=== PATIENT | male | born 1965 | race Caucasian/White ===

== ENCOUNTER 2016-05-10 12:36 | Day surgery (SDC) | payer OTHER ==
[~2016-05-10] VITALS: Ht 177.8 cm; Wt 96.0 kg
[2016-05-10] VITALS (14 sets, daily range): BP systolic 92–114; BP diastolic 57–64; PULSE 75–78; RESP 9–18; O2SAT 93–99
[~2016-05-10 12:36] MED LIST: ALBU18HF INH; ALBU2.5V4 INHALATION; AMIT100T2 PO; AMLO10TA3 PO; ATEN100T PO; CARI350T PO; CeFAZolin 2 Gm/50 mL D5W IV Premix IV ONE; LIDO700A6 TP; LISI40TA PO; LORA10CA PO; MONT10TA23 PO; NPR500T PO; OMEP20TA86 PO; OXYC-466 PO; TRAM50TA2 PO; VIAGRA PO
[2016-05-10] MEDS ORDERED: Propofol 10,000 mCg/mL 20 mL Inj ONE (12:37)
[2016-05-10] MEDS ORDERED: Phenylephrine/NS 100 mCg/mL 10 mL Syringe IVPUSH ONE (12:37)
[2016-05-10] MEDS ORDERED: Lidocaine PF 1% 30 mL Inj ONE (12:37)
[2016-05-10] MEDS ORDERED: Vasopressin 20 Unit/mL Inj ONE (12:37)
[2016-05-10] MEDS ORDERED: Succinylcholine Chloride 20 mg/mL 5 mL Inj ONE (12:37)
[2016-05-10] MEDS ORDERED: fentaNYL-PF 50 mCg/mL 2 mL Inj ONE (12:37)
[2016-05-10] MEDS ORDERED: EPHEDrine/NS 5 mg/mL 5 mL Syringe ONE (12:37)
[2016-05-10] MEDS ORDERED: Ondansetron 2 mg/mL 2 mL Inj ONE (12:37)
[2016-05-10] MEDS ORDERED: Phenylephrine 10,000 mCg/mL Inj ONE (12:37)
[2016-05-10] MEDS ORDERED: CeFAZolin 2 Gm/50 mL D5W Duplex Bag IV ONE (13:06)
[2016-05-10] MEDS ORDERED: Lactated Ringer's 1,000 ML IV ONE ×2 (13:15→17:33)
[2016-05-10] MEDS ORDERED: oxyCODONE-Acetamin 5-325 mg Tablet PO PRN (13:55)
[2016-05-10] MEDS ORDERED: Ketorolac 15 mg/mL Inj IVPUSH ONE (13:55)
--- NOTE | 2016-05-10 15:02 | PCM.HPANE ---
Patient Data Date of Service: May 10, 2016 Surgeon Admitting Provider: Attending Provider:Silverio Bellamy MD Primary Care Physician:Norman Watters MD Other Provider:Aury Dorsey Anesthesia Reason for Visit Left Clavicle Fracture Ht/WT & BMI Height (Feet): 5 Height (Inches): 10 Weight (Kilograms): 96 Body Mass Index 30.00 Allergies Coded Allergies: No Known Allergies (Verified Allergy, Unknown, 05/10/16) Past Anesthesia History Anesthesia History: Denies:: Anesthesia Reactions, Fam Anesthesia Reaction, Fam Malignant Hypertherm, Malignant Hyperthermia Diabetes History Hx Diabetes?: No MRSA MRSA: No Medications Hypertension Medication: Yes (AMLODIPINE,LISINOPRIL) Home Meds Incl Beta Aung: No Reported Medications Naproxen 500 Mg Uly058 Mg PO BID PRN For Pain Ref 0 05/09/16 oxyCODONE-Acetaminophen 10-325 mg 1 Each Tablet1 Tablet PO Q4H PRN For Pain Ref 0 02/03/16 [Viagra] No Conflict Tirvn44-17 Mg PO DAILY PRN PRN 10/06/15 Omeprazole 20 Mg Tablet.dr20 Mg PO DAILY 10/06/15 Montelukast 10 Mg Fcvcxn72 Mg PO HS Ref 0 10/06/15 Loratadine (Claritin)10 Mg Qgpakge65 Mg PO DAILY Ref 0 10/06/15 Albuterol Neb Soln 2.5 Mg/3 Ml Vial.neb2.5 Mg INHALATION Q4H PRN For Shortness of Breath Ref 0 10/06/15 Albuterol Sulfate (Ventolin HFA Inhaler)200 Puff/18 Gm Inhaler1 Puff INH Q4 PRN For Wheezing #1 INHALER Ref 0 06/24/14 Lisinopril 40 Mg Gzhiwz09 Mg PO DAILY 30 Days Ref 0 05/20/14 Tramadol 50 Mg Dafpvf04 Mg PO Q6H PRN For Pain Ref 0 05/20/14 Atenolol 100 Mg Odjzou136 Mg PO DAILY Ref 0 05/20/14 Amlodipine 10 Mg Ihhprb78 Mg PO DAILY 30 Days Ref 0 05/20/14 Carisoprodol (Soma)350 Mg Yhotre473 Mg PO TID 05/20/14 Amitriptyline 100 Mg Tqufkb550 Mg PO HS Ref 0 05/20/14 Lidocaine (Lidoderm)700 Mg Adh..patch1 Patch TP UD Ref 0 05/20/14 History History of ENT Problems?: Yes HEENT History: Positive for:: Sinus Problem (SEASONAL ALLERGIES) Denies:: Hearing Problem Hx of Heart Problems?: Yes Cardiovascular History: Positive for:: Hypertension Denies:: AICD Congestive Heart Failure Heart Murmur Irregular Heartbeat Pacemaker Valvular Heart Disease Hx of Respiratory Problem?: Yes Respiratory History: Positive for:: Asthma (PULM NOTES/PFT 12/2014 ) Chest Surgery (S/P MEDIASTINOSCOPY DX-SARCOIDOSIS) Use of Inhalers / NEBS Denies:: Oxygen Administration Tuberculosis Use of C-PAP Machine Hx Neurologic Problems?: No Hx of GI Problems?: Yes Gastrointestinal History: Positive for:: Gastroesphageal Reflux Denies:: Hepatitis Hx of Problems?: No Male Hx: Denies:: Prostate Problems Scrotal Mass Testicular Surgery Skin History: Denies:: History Skin Disorders? Pressure Ulcers Hx Musculoskeletal Problems?: Yes Musculoskeletal History: Positive for:: Joint Replacement (LT SHOULDER REYNALDO- ARTHROPLASTY) Musculoskeletal Trauma (S/P LT SHOULDER HEMIARTHROPLASTY HX RT ROTATOR CUFF TEAR,FINGER FX,FX RIB) Osteoarthritis Denies:: Back Injury (C/OF CHRONIC BACK PAIN/RT SHOULDER RCT) Hx of Psycho/Social Problems?: Yes Psycho Social History: Positive for:: Anxiety Hx Surgeries?: Yes (ORIF LT CLAVICLE,MEDIASTINOSCOPY,LT SHOULDER HEMIARTHROPLASTY,BONE STIMULAT) Hx Any Other Health Problems?: Yes Other History: Denies:: Cancer Endocrine Disease Hospitalization Thyroid Disease History Blood Transfusions: Denies:: Blood Transfusions Hx Diabetes: No Hx Alcohol Use: NoHx Substance Use: No Smoking Status: Never Smoker Have You Smoked inLast 12 mo: No Stop/Bang Treated for Sleep Apnea?: No Do You Have a CPAP Machine?: No S-Snoring: Do You Snore Loudly: No T-Tired: feel tired, fatigued: No O-Obsered: Observed not breath: No P-Blood Pressure: treated: Yes B- Body Mass Index > 35 kg/m2: No A- Age over 50: Yes N- Neck Large Circumference: No G- Gender Male: Yes DIEGO Total Score: 3 DIEGO Risk Assessment: High Risk, =/>3 Yes DIEGO Category 4 OutPt Procedure: Yes Risk Assessment Category Category 1A: Patient has history of documented sleep apnea, and HAS NOT received any narcotic, sedative or anesthesia administration during this stay. Category 1B: Patient has history of documented sleep apnea, and HAS received any narcotic , sedative or anesthesia administration during this stay Category 2: Patient has SUSPECTED Obstructive Sleep Apnea, and HAS received any narcotic , sedative or anesthesia administration during this stay. Category 3: Patient has SUSPECTED Obstructive Sleep Apnea and HAS NOT received narcotic, sedative or anesthesia administration during this stay. Category 4: Outpatient in Procedural Areas with known sleep apnea or who screen positive for High Risk via the STOP/BANG questionnaire. Exam Exam Vital Signs Vital Signs Date Time Temp Pulse Resp B/P Pulse Ox O2 Delivery O2 Flow Rate FiO2 05/10/16 13:15 36.7 78 15 92/57 93 Room Air General Appearance: Alert, Cooperative HEENT/AIRWAY: MP 2, Neck Movement (Full), Mouth Opening (Wide) Lungs: Clear to Auscultation, Normal Air Movement Heart: Regular Rate/Rhythm, Normal S1, Normal S2 Additional Information Patient initially drowsy on presentation, at time of my interview he is more awake and able to carry on conversation without difficulty. Long discussion of risks of anesthesia with substance use/abuse, patient adamant that he did not/ does not use any recreational drugs or alcohol. He did note that he took an additional Percocet pill prior to going to bed last night. Meds/Labs/Diagnostics Admission Meds Current Medications Lactated Ringer's (Lr) 1,000 ml @ ud STK-MED ONCE IV Last administered on 05/10t 13:15; Start 05/10/16 at 13:15; Stop 05/10/16 at 14:28; Status DC Plan Impression Patient chart reviewed, patient interviewed and anesthestic plan with risks, benefits, and alternatives discussed, and informed consent obtained. NPO Status: 1315 05/09/2016. Arrived drinking from water bottle. Stopped at 1315 ASA Physical Status: ASA2 Mod Systemic Disease Anesthetic Plan: GA Bene/Risks/Altern/Consents: Yes HP Complete Prior to Induction: Yes Tom Flowers MD May 10, 2016 14:48
--- NOTE | 2016-05-10 15:15 | PCM.ORTHOP ---
Orthopedic Operative Report Date of Service: May 10, 2016 Pre Operative Diagnosis Left clavicle malunion Post Operative Diagnosis Left clavicle malunion Procedure Left clavicle hardware removal, osteotomy and malunion takedown with iliac crest autograft bone grafting, (CPT 44118), ORIF Surgeon Surgeon: Silverio Bellamy MD Assistants:Rocael Knowles Indication for Procedure Left clavicle fracture malunion Findings Left clavicle nonunion, fracture through plate Details of Procedure Implant: Arthrex precontoured clavicle plate Anesthesia: general ETA Complications: none Estimated Blood Loss: 50 mL Findings: Left clavicle fracture malunion. Fluoroscopic imaging after ORIF shows good alignment of left clavicle shaft with autograft Specimens: None Patient Status: Patient was extubated and taken to recovery room in stable condition. Narrative: Indications: Micah Gaytan is a 50-year-old male with a left clavicle fracture malunion. A clear explanation was given to the patient regarding the condition present, and the available conservative and surgical options. It was emphasized that the risks and benefits of surgery include but are not limited to infection , wound healing problems, damage to adjacent structures such as nerves, blood vessels and tendons, exterminator helper disability and pain, arthritis, hypersensitivity , deep vein thrombosis, pulmonary embolism, broken hardware, failure of surgery , need for further procedures at time of surgery or later, cast related problems , loss of limb or life. The patient understood that given the longstanding nature of symptoms and that the patient would likely continue to have symptoms despite surgical intervention. The patient was given an explanation and the patient voiced understanding of what to expect after the procedure or surgery, the limitations in activities of daily living, the likely duration for post operative recovery and the instructions that are to be followed. At the end the patient was invited to seek clarification or ask further questions but there were none. The patient voiced understanding of the entire consultation. Description of Procedure: Patient taken to operating room and transferred to operating table in supine position. Time out was performed with both anesthesia and orthopaedics faculty present to confirm details of case to be performed. After time out performed, patient placed under general anesthesia and endotracheal tube secured into place. Once endotracheal tube secured, the patient was placed into the beach-chair position. Patient position was again checked to ensure all bony prominences adequately padded. The left arm, shoulder and clavicle was prepped and draped in the usual sterile fashion to the level of the tourniquet. An incision was made over the fracture site. Dissection was sharply performed down to bone and plate. The previous hardware was removed. The bovie was used to clear soft tissue from the fracture site. Care was taken to avoid any neurovascular structures. There was a malunion with callus that was resected for later bone grafting. The fracture was reduced under direct visualization. The devitalized cortical chips were removed. The plate was then applied and secured to bone with solid screw purchase and locking screws secured to plate. Attention was then turned to the right iliac crest. A 4 cm incision within 5 cm of the anterior superior iliac spine was made. Dissection was carried over the iliac table. A 1 cm block was osteotomized and harvested for bone graft in addition to aspiration of the bone marrow (10 cc). 5 cc of Morphine were injected in the pelvic wound prior to closure in layers. The bone graft was then placed in the defect created from the malunion takedown at the fracture site of the clavicle. Fluoroscopy showed reduction of fracture. The wound was thoroughly irrigated by bulb irrigation. Hemostasis was obtained with electrocautery. The wound was closed in layers. The wound was cleaned and dressed with Adaptic, gauze, and tape. The patient was extubated without difficulty and transferred to the PACU in stable condition. MACHINE STEMMER SURGEON: During the operation, the services of physician printing bindery assistant were medically indicated and necessary to provide exposure of the operative site for the surgical procedure and to maintain the limb in a proper position to carry out the operation safely and efficiently. Without the qualified engineering assistant being present, it would have extended the operative procedure and made the procedure technically more difficult to perform. Grafts, Implants: Implants-See Implant Record Complications There were no periprocedural complications identified. Condition Stable Anesthetic Administered: GA Catheters: None Output, Estimated Blood Loss: 50 Blood Admin during surgery: No Surgical Cast or Splint: Shoulder Immobilizer Surgical Specimen Removed: No Specimen sent to Pathology: No copies to: Silverio Bellamy MD, Christopher L MD May 10, 2016 15:15 Silverio Bellamy MD May 10, 2016 15:15
[2016-05-10] MEDS ORDERED: Morphine PF 0.5 mg/mL 10 mL Inj ONE (15:48)
[2016-05-10] MEDS ORDERED: Morphine PF 0.5 mg/mL 10 mL Inj ARTICULAR ONE (16:03)
[2016-05-10] MEDS ORDERED: Ropivacaine-PF 0.5% 30 mL Inj INJ ONE (16:03)
[2016-05-10] MEDS ORDERED: Bacitracin 50,000 unit Inj INFILTRATE ONE (16:03)
[2016-05-10] MEDS ORDERED: EPHEDrine Sulfate 50 mg/mL Inj IVPUSH PRN (16:30)
[2016-05-10] MEDS ORDERED: MetoCLOpramide 5 mg/mL 2 mL Inj IVPUSH PRN (16:30)
[2016-05-10] MEDS ORDERED: Phenylephrine 10,000 mCg/mL Inj IVPUSH PRN (16:30)
[2016-05-10] MEDS ORDERED: Labetalol 5 mg/mL 4 mL Inj IV PRN (16:30)
[2016-05-10] MEDS ORDERED: Atropine 0.4 mg/mL Inj IVPUSH PRN (16:30)
[2016-05-10] MEDS ORDERED: Lactated Ringer's 1,000 ML IV SCH (16:30)
[2016-05-10] MEDS ORDERED: Ondansetron 2 mg/mL 2 mL Inj IVPUSH PRN (16:30)
[2016-05-10] MEDS ORDERED: Dexamethasone 4 mg/mL Inj IVPUSH PRN (16:30)
[2016-05-10] MEDS ORDERED: hydrALAZINE 20 mg/mL Inj IVPUSH PRN (16:30)
[2016-05-10] MEDS ORDERED: HYDROmorphone 1 mg/mL Inj IVPUSH PRN (16:30)
[2016-05-10] MEDS ORDERED: Lactated Ringer's 500 ML IV PRN (16:30)
[2016-05-10] MEDS ORDERED: fentaNYL-PF 50 mCg/mL 2 mL Inj IVPUSH PRN (16:30)
--- NOTE | 2016-05-10 17:50 | PCM.ANEP1 ---
Post Anesthesia Phase 1 PACU Phase 1 Assessment Date of Service: May 10, 2016 Vital Signs Vital Signs Date Time Temp Pulse Resp B/P Pulse Ox O2 Delivery O2 Flow Rate FiO2 05/10/16 13:15 36.7 78 15 92/57 93 Room Air Anesthetic Administered: GA Level of Alertness: Sleepy, easy to arouse VENTURA's with Equal Strength: Yes Pain: No Nausea or Vomiting: No Oxygen Delivery: Simple Mask Lungs: Normal Air Movement Tom Flowers MD May 10, 2016 17:50
[2016-05-10] MEDS ORDERED: Ketorolac 15 mg/mL Inj ONE (18:35)
--- NOTE | 2016-05-10 18:55 | PCM.ANEP2 ---
Post Anesthesia Evaluation ASA/CMS Post Anesthesia Date of Service: May 10, 2016 VS in Patient's Normal Range?: Yes Resp Stable; Airway Patent?: Yes CV Function & Hydration Stable: Yes Mental Status Recovered?: Yes (Easily awakens, oriented. Sleepy) Pain control Satisfactory?: Yes N/V Control Satisfactory?: Yes Tom Flowers MD May 10, 2016 18:55
[2016-09-08] MEDS ORDERED: ATEN-156 PO (14:45)
== END 2016-05-10 23:59 | disposition home or self-care (01) ==
LOC: SAS 12:36
PROVIDERS: ATTEND Orthopaedic Surgery
DX: S42.022P Displaced fracture of shaft of left clavicle, subsequent encounter for fracture with malunion (principal); M19.012 Primary osteoarthritis, left shoulder; I10 Essential (primary) hypertension; J45.909 Unspecified asthma, uncomplicated; M54.89 Other dorsalgia; K21.9 Gastro-esophageal reflux disease without esophagitis; F41.9 Anxiety disorder, unspecified
CPT/HCPCS: 23485; 76001; C1713; J0330; J0690; J1885; J2274; J2370; J2405; J2795; J7050; J7120

== ENCOUNTER 2016-05-25 11:20 | Day surgery (SDC) | payer OTHER ==
[~2016-05-25] VITALS: Ht 180.3 cm; Wt 95.2 kg
[~2016-05-25 11:20] MED LIST changes: -CeFAZolin 2 Gm/50 mL D5W IV Premix IV ONE; +Lactated Ringer's 1,000 ML IV SCH
[2016-09-08] MEDS ORDERED: ATEN-156 PO (14:45)
== END 2016-05-25 23:59 | disposition home or self-care (01) ==
LOC: SAS 11:20
PROVIDERS: ATTEND Plastic Surgery
DX: H02.826 Cysts of left eye, unspecified eyelid (principal); Z53.9 Procedure and treatment not carried out, unspecified reason

== ENCOUNTER 2016-06-08 05:37 | Day surgery (SDC) | payer OTHER ==
[~2016-06-08] VITALS: Ht 177.8 cm; Wt 89.6 kg
[~2016-06-08 05:37] MED LIST changes: -Lactated Ringer's 1,000 ML IV SCH
[2016-06-08] MEDS ORDERED: fentaNYL-PF 50 mCg/mL 2 mL Inj ONE (05:38)
[2016-06-08] MEDS ORDERED: Propofol 10,000 mCg/mL 20 mL Inj ONE (05:38)
[2016-06-08] MEDS ORDERED: Lidocaine PF 1% 30 mL Inj ONE (05:38)
[2016-06-08 06:04] VITALS: BP 141/97; PULSE 70; RESP 16; O2SAT 100
[2016-06-08] MEDS: Lactated Ringer's 1,000 ML IV SCH ×2 (06:18→07:46)
[2016-06-08] MEDS ORDERED: Atropine 0.4 mg/mL Inj IVPUSH PRN (08:25)
[2016-06-08] MEDS ORDERED: EPHEDrine Sulfate 50 mg/mL Inj IVPUSH PRN (08:25)
[2016-06-08] MEDS ORDERED: Lactated Ringer's 1,000 ML IV SCH (08:25)
[2016-06-08] MEDS ORDERED: Labetalol 5 mg/mL 4 mL Inj IV PRN (08:25)
[2016-06-08] MEDS ORDERED: MetoCLOpramide 5 mg/mL 2 mL Inj IVPUSH PRN (08:25)
[2016-06-08] MEDS ORDERED: fentaNYL-PF 50 mCg/mL 2 mL Inj IVPUSH PRN (08:25)
[2016-06-08] MEDS ORDERED: hydrALAZINE 20 mg/mL Inj IVPUSH PRN (08:25)
[2016-06-08] MEDS ORDERED: HYDROmorphone 1 mg/mL Inj IVPUSH PRN (08:25)
[2016-06-08] MEDS ORDERED: Lactated Ringer's 500 ML IV PRN (08:25)
[2016-06-08] MEDS ORDERED: Dexamethasone 4 mg/mL Inj IVPUSH PRN (08:25)
[2016-06-08] MEDS ORDERED: Ondansetron 2 mg/mL 2 mL Inj IVPUSH PRN (08:25)
[2016-06-08] MEDS ORDERED: Phenylephrine 10,000 mCg/mL Inj IVPUSH PRN (08:25)
--- NOTE | 2016-06-08 08:25 | PCM.HPANE ---
Patient Data Date of Service: Jun 08, 2016 Surgeon Admitting Provider: Attending Provider:Justin Giles MD Primary Care Physician:Norman Watters MD Other Provider:Aury Dorsey Anesthesia Reason for Visit Left Eye Lid Cyst Ht/WT & BMI Height (Feet): 5 Height (Inches): 10 Weight (Kilograms): 89.6 Body Mass Index 28.00 Past Anesthesia History Anesthesia History: Positive for:: Anesthesia Reactions (profound hypotension after induction, possibly due to lisinopril), Denies:: Fam Anesthesia Reaction, Fam Malignant Hypertherm, Malignant Hyperthermia Diabetes History Hx Diabetes?: No MRSA MRSA: No Medications Hypertension Medication: Yes (AMLODIPINE,LISINOPRIL) Home Meds Incl Beta Aung: Yes Date Beta Aung Taken: Jun 07, 2016 Time Beta Aung Taken: 1700 Reported Medications oxyCODONE-Acetaminophen 10-325 mg 1 Each Tablet1 Tablet PO Q4H PRN For Pain Ref 0 02/03/16 [Viagra] No Conflict Ptotu32-05 Mg PO DAILY PRN PRN 10/06/15 Omeprazole 20 Mg Tablet.dr20 Mg PO DAILY 10/06/15 Montelukast 10 Mg Ofhchq76 Mg PO HS Ref 0 10/06/15 Loratadine (Claritin)10 Mg Vqphsts48 Mg PO DAILY Ref 0 10/06/15 Albuterol Sulfate (Ventolin HFA Inhaler)200 Puff/18 Gm Inhaler1 Puff INH Q4 PRN For Wheezing #1 INHALER Ref 0 06/24/14 Lisinopril 40 Mg Emqcma22 Mg PO DAILY 30 Days Ref 0 05/20/14 Tramadol 50 Mg Iyiiaq83 Mg PO Q6H PRN For Pain Ref 0 05/20/14 Atenolol 100 Mg Balxhd196 Mg PO DAILY Ref 0 05/20/14 Amlodipine 10 Mg Crgbzo31 Mg PO DAILY 30 Days Ref 0 05/20/14 Carisoprodol (Soma)350 Mg Fwmcst525 Mg PO TID 05/20/14 Amitriptyline 100 Mg Ylcmuo531 Mg PO HS Ref 0 05/20/14 Discontinued Reported Medications Naproxen 500 Mg Bdn676 Mg PO BID PRN For Pain Ref 0 05/09/16 Albuterol Neb Soln 2.5 Mg/3 Ml Vial.neb2.5 Mg INHALATION Q4H PRN For Shortness of Breath Ref 0 10/06/15 Lidocaine (Lidoderm)700 Mg Adh..patch1 Patch TP UD Ref 0 05/20/14 History History of ENT Problems?: Yes HEENT History: Positive for:: Sinus Problem (SEASONAL ALLERGIES) Denies:: Glaucoma (LT EYELID CYST=CURRENT PROBLEM) Hearing Problem Hx of Heart Problems?: Yes Cardiovascular History: Positive for:: Hypertension Denies:: AICD Congestive Heart Failure Heart Murmur Irregular Heartbeat Pacemaker Valvular Heart Disease Hx of Respiratory Problem?: Yes Respiratory History: Positive for:: Asthma Chest Surgery (S/P mediastinoscopy DX W/ SARCOIDOSIS) Use of Inhalers / NEBS Denies:: Emphysema Oxygen Administration Pneumonia Tuberculosis Use of C-PAP Machine Hx Neurologic Problems?: No Neurological History: Denies:: CVA Headaches Multiple Sclerosis Parkinson's Disease Seizures Hx of GI Problems?: Yes Gastrointestinal History: Positive for:: Gastroesphageal Reflux Hepatitis (HX HEPATITIS) Denies:: Hiatal Hernia Hx of Problems?: No Male Hx: Denies:: Prostate Problems Scrotal Mass Testicular Surgery Skin History: Denies:: History Skin Disorders? Pressure Ulcers Hx Musculoskeletal Problems?: Yes Musculoskeletal History: Positive for:: Joint Replacement (S/P left shoulder HEMIARTHROPLASTY) Musculoskeletal Trauma (S/P ORIF LT CLAVICLE,BONE STIMULATOR HX RT ROTATOR CUFF TEAR) Denies:: Back Injury (chronic back pain) Hx of Psycho/Social Problems?: Yes Psycho Social History: Positive for:: Anxiety Hx Surgeries?: Yes (ORIF LT CLAVICLE,MEDIASTINOSCOPY,LT SHOULDER HEMIARTHROPLASTY,BONE STIMULAT) Hx Any Other Health Problems?: Yes Other History: Denies:: Cancer Endocrine Disease Hospitalization Thyroid Disease History Blood Transfusions: Denies:: Blood Transfusions Hx Diabetes: No Hx Alcohol Use: NoHx Substance Use: No Smoking Status: Never Smoker Have You Smoked inLast 12 mo: No Stop/Bang Treated for Sleep Apnea?: No Do You Have a CPAP Machine?: No S-Snoring: Do You Snore Loudly: No T-Tired: feel tired, fatigued: No O-Obsered: Observed not breath: No P-Blood Pressure: treated: Yes B- Body Mass Index > 35 kg/m2: No A- Age over 50: Yes N- Neck Large Circumference: No G- Gender Male: Yes DIEGO Total Score: 3 DIEGO Risk Assessment: High Risk, =/>3 Yes DIEGO Category 4 OutPt Procedure: Yes Risk Assessment Category Category 1A: Patient has history of documented sleep apnea, and HAS NOT received any narcotic, sedative or anesthesia administration during this stay. Category 1B: Patient has history of documented sleep apnea, and HAS received any narcotic , sedative or anesthesia administration during this stay Category 2: Patient has SUSPECTED Obstructive Sleep Apnea, and HAS received any narcotic , sedative or anesthesia administration during this stay. Category 3: Patient has SUSPECTED Obstructive Sleep Apnea and HAS NOT received narcotic, sedative or anesthesia administration during this stay. Category 4: Outpatient in Procedural Areas with known sleep apnea or who screen positive for High Risk via the STOP/BANG questionnaire. Exam Exam Vital Signs Vital Signs Date Time Temp Pulse Resp B/P Pulse Ox O2 Delivery O2 Flow Rate FiO2 06/08/16 06:04 36.5 70 16 141/97 100 Room Air General Appearance: Alert, Oriented X3, Cooperative HEENT/AIRWAY: MP 2, Neck Movement (Full), Mouth Opening (Wide) Lungs: Clear to Auscultation, Normal Air Movement Heart: Regular Rate/Rhythm, Normal S1, Normal S2 Meds/Labs/Diagnostics Admission Meds Current Medications Lactated Ringer's (Lr) 1,000 ml @ 120 mls/hr Q8H20M IV Last administered on t 07:46; Start 06/08/16 at 05:00; Stop 06/08/16 at 13:19 Plan Impression Patient chart reviewed, patient interviewed and anesthestic plan with risks, benefits, and alternatives discussed, and informed consent obtained. NPO Status: mn ASA Physical Status: ASA2 Mod Systemic Disease Anesthetic Plan: MAC Bene/Risks/Altern/Consents: Yes HP Complete Prior to Induction: Yes Other Discussed MAC with surgeon given previous profound hypotension under general anesthesia Tom Flowers MD Jun 08, 2016 08:09
--- NOTE | 2016-06-08 08:52 | PCM.ANEP1 ---
Post Anesthesia Phase 1 PACU Phase 1 Assessment Date of Service: Jun 08, 2016 Vital Signs T 36.7, HR 73, O2 96% RA, BP 138/79, RR 16 Vital Signs Date Time Temp Pulse Resp B/P Pulse Ox O2 Delivery O2 Flow Rate FiO2 06/08/16 06:04 36.5 70 16 141/97 100 Room Air Anesthetic Administered: MAC Level of Alertness: Awake, talking VENTURA's with Equal Strength: Yes Pain: No Nausea or Vomiting: No Oxygen Delivery: Room Air Lungs: Normal Air Movement Tom Flowers MD Jun 08, 2016 08:52
[2016-06-08] MEDS ORDERED: oxyCODONE-Acetamin 5-325 mg Tablet PO PRN (08:55)
--- NOTE | 2016-06-08 08:59 | PCM.ANEP2 ---
Post Anesthesia Evaluation ASA/CMS Post Anesthesia Date of Service: Jun 08, 2016 VS in Patient's Normal Range?: Yes Resp Stable; Airway Patent?: Yes CV Function & Hydration Stable: Yes Mental Status Recovered?: Yes Pain control Satisfactory?: Yes N/V Control Satisfactory?: Yes Tom Flowers MD Jun 08, 2016 08:59
[2016-06-08 09:01] VITALS: BP 138/79; PULSE 71; RESP 16; O2SAT 98
[2016-06-08 09:18] VITALS: BP 150/84; PULSE 69; RESP 16; O2SAT 97
--- NOTE | 2016-06-08 14:32 | OP ---
[address] [address] OPERATIVE REPORT PATIENT: RUSS KEATING : 1965 MR#: [id number] ADMIT: 06/08/2016 JOB ID: [id number] DATE OF SURGERY: 06/08/2016 PREOPERATIVE DIAGNOSIS(ES): Left upper eyelid epidermal inclusion cyst. POSTOPERATIVE DIAGNOSIS(ES): Left upper eyelid epidermal inclusion cyst. PROCEDURE: 1. Excision of left upper eyelid epidermal inclusion cyst, 6 mm. 2. Simple closure of left upper eyelid defect. Total length of simple closure 2 cm. SURGEON: Justin Giles MD SENIOR SSIS DEVELOPER: None. ANESTHESIA: MAC with local. COMPLICATIONS: None apparent. SPECIMEN: Left upper eyelid lesion to Pathology. INDICATIONS FOR PROCEDURE: This is a 50-year-old male patient with a slowly enlarging mass of the left upper eyelid consistent with an epidermal inclusion cyst. At this point, excision of the cyst is indicated. PROCEDURE AND FINDINGS: The patient was identified in the preoperative area and the surgical site was marked. The patient was then taken back to the operating room and placed supine on the operating table. Appropriate time-outs were taken. MAC was induced smoothly. The patient was then prepped and draped in the usual sterile manner. Local anesthesia was then infiltrated to the surgical site consisting of 1% lidocaine with epinephrine. After an appropriate amount of time was allowed for this to take effect I made an elliptical incision around the cyst. The axis of the ellipse was along the relaxed skin tension line. Incision was deepened down through the skin to the underlying orbicularis oculi muscle. The ellipse of skin along with the cyst was elevated off of the orbicularis muscle. Hemostasis was obtained with electrocautery. The specimen was passed off to Pathology. The incision was then reapproximated with 5-0 Prolene running subcuticular suture. Both the ends were taped down. The patient tolerated the procedure well. Needle count, sponge count, and instrument counts were correct at the end of the procedure. The patient was transported to recovery in stable condition. Again, the diameter of excision was approximately 6-7 mm and the total length of closure was 2 cm.
--- NOTE | 2016-06-09 13:43 | PATH ---
SURGICAL PATHOLOGY Attending Physician:Justin Giles CASE STATUS: Signed Out PATIENT NAME: RUSS KEATING PID: [id number] : 1965 DATE COLLECTED:06/08/2016 15:21 SPECIMEN: CYST, NOS CLINICAL HISTORY: LEFT EYE UPPER LID CYST FINAL DIAGNOSIS: 1.SKIN, LEFT UPPER EYELID: BENIGN EPIDERMAL CYST, NEGATIVE FOR ATYPIA. ICD10 CODE L72.0 GROSS DESCRIPTION: The specimen is received in one formalin filled container labeled with the patient's name, sublabeled "left thigh upper lid cyst" and consists of a 0.6 x 0.4 x 0.3 CM franklin-navarrete ovoid portion of tissue. The specimen is inked blue, bisected and totally submitted in one cassette. 06/08/2016 DAC MICRO DESCRIPTION: See diagnosis. ICD-9 CODES: CPT CODES: 1: 91369 Electronically Signed Out Tremayne Sagastume MD [facility] [address], [place] [address] Technical component performed at [facility], [facility] [address], [place], [address]
[2016-09-08] MEDS ORDERED: ATEN-156 PO (14:45)
== END 2016-06-08 23:59 | disposition home or self-care (01) ==
LOC: SAS 05:37
PROVIDERS: ATTEND Plastic Surgery
DX: L72.0 Epidermal cyst (principal); I10 Essential (primary) hypertension; J45.909 Unspecified asthma, uncomplicated; D86.9 Sarcoidosis, unspecified; Z79.51 Long term (current) use of inhaled steroids
CPT/HCPCS: 67840; 88305; J2250; J3010; J7120

== ENCOUNTER 2016-09-28 14:29 | Day surgery (SDC) | payer OTHER ==
[~2016-09-28] VITALS: Ht 177.8 cm; Wt 86.2 kg
[~2016-09-28 14:29] MED LIST changes: -ALBU2.5V4 INHALATION; -AMIT100T2 PO; +ATEN-156 PO; -ATEN100T PO; -LIDO700A6 TP; -NPR500T PO; +Sodium Chloride LOK Flush 10 mL Syringe IV PRN; -VIAGRA PO; +fentaNYL-PF 50 mCg/mL 2 mL Inj IVPUSH PRN
[2016-09-28] MEDS ORDERED: fentaNYL-PF 50 mCg/mL 2 mL Inj IVPUSH ONE (14:30)
[2016-09-28 15:17] VITALS: BP 134/85; PULSE 75; RESP 14; O2SAT 97
[2016-09-28] MEDS: 0.9% Sodium Chloride 1,000 ML IV SCH ×2 (16:08→16:35)
--- NOTE | 2016-09-28 16:45 | PCM.ENDCOL ---
Colonoscopy Date of Service: Sep 28, 2016 Physician Bill Galicia MD Pre Procedure Diagnosis: Screening Post Procedure Dx & Findings: Hemorrhoids diverticuli prominent ileocecal valve Procedure Colonoscopy PROCEDURE IN DETAIL: Prep adequate Withdrawal time 11 minutes After unremarkable rectal examination the Olympus video colonoscope was inserted patient's anal canal and was advanced to cecum. Landmarks were identified including the ileocecal valve and appendiceal orifice. Scope was withdrawn systematically. Visualized colonic mucosa showed healthy shiny mucosa with normal healthy-appearing vasculature. Ileocecal valve seemed to be prominent. Positive pillow sign. Biopsy obtained. Lipomatous appearing noted at the biopsy site. In the sigmoid colon , there were several medium size diverticuli. In the rectum retroflexion was done which showed hemorrhoids. Anal canal was inspected carefully on the way out and hemorrhoids noted. Impression Prominent ileocecal valve Diverticuli Hemorrhoids Recommendation Repeat colonoscopy in 10 years if there is no family history of colon cancer polyp Diverticular diet He needed Versed 10 mg and fentanyl 200 g. Next time will use anesthesia. Presedation Assessment Risks and Benefits Informed consent was obtained from the patient after all risks and benefits including but not limited to drug reaction, infection, pain, bleeding, perforation, as well as alternatives were discussed. Patient monitoring Continuous pulse oximetry, cardiac monitoring, blood pressure monitoring, IV access, and oxygen at 2L per nasal cannula. Periprocedural Fentanyl: Fentanyl 200mcg Incrementally Midazolam: Midazolam 10mg Incrementally Complications There were no periprocedural complications identified. Post Procedure Plan Post Procedure Recommendations 1. Restrict activities today. 2. Resume normal activities in the morning. 3. Resume medications. 4. Patient informed of normal post procedure side effects as bloating, drowsiness, blood streaking in the stool. 5. average risk CRCS. If colon polyps come back as: -Hyperplastic- can repeat colonoscopy in 10 years -Tubular adenoma- repeat colonoscopy in 5 years -Tubulovillous/villous adenoma- repeat colonoscopy in 3 years -If any dysplasia- return to clinic as soon as possible 6. Please don't hesitate to call me with any questions. Bill Galicia MD Sep 28, 2016 16:45
[2016-09-28 16:47] VITALS: BP 142/88; PULSE 67; RESP 16; O2SAT 98
[2016-09-28 17:02] VITALS: BP 121/88; PULSE 68; RESP 16; O2SAT 100
--- NOTE | 2016-10-02 14:19 | PATH ---
SURGICAL PATHOLOGY Attending Physician:Bill Galicia M.D. CASE STATUS: Signed Out PATIENT NAME: RUSS KEATING PID: [id number] : 1965 DATE COLLECTED:09/28/2016 00:00 SPECIMEN: Colon, Biopsy CLINICAL HISTORY: 1. ILEOCECAL VALVE BIOPSY FINAL DIAGNOSIS: 1.ILEOCECAL VALVE BIOPSY: FRAGMENT OF MUCOSA CONSISTENT WITH TERMINAL ILEUM ORIGIN, NEGATIVE FOR SIGNIFICANT INFLAMMATION, DYSPLASIA AND MALIGNANCY. Negative for granulomas. ICD10 Z12.11 GROSS DESCRIPTION: The specimen is received in one formalin filled container labeled with the patient's name, sublabeled "ileocecal valve" and consists of a 0.2 x 0.2 x 0.2 CM portion of tissue which is entirely submitted in one cassette. 09/29/2016 [facility] MICRO DESCRIPTION: See diagnosis. ICD-9 CODES: CPT CODES: 1: 89449 Electronically Signed Out Tremayne Sagastume MD [facility] Pathology [facility] [address], [place] [address] Technical component performed at [facility], [facility] [address], [place], [address]
== END 2016-09-28 23:59 | disposition home or self-care (01) ==
LOC: END 14:29
PROVIDERS: ATTEND Internal Medicine
DX: Z12.11 Encounter for screening for malignant neoplasm of colon (principal); D17.79 Benign lipomatous neoplasm of other sites; K57.90 Diverticulosis of intestine, part unspecified, without perforation or abscess without bleeding; K64.9 Unspecified hemorrhoids; D86.9 Sarcoidosis, unspecified; G89.29 Other chronic pain; M54.9 Dorsalgia, unspecified; I10 Essential (primary) hypertension; J45.909 Unspecified asthma, uncomplicated
CPT/HCPCS: 45380; 88305; 99153; G0500; J2250; J3010; J7030